=== PATIENT | female | born 1975 | race Caucasian/White ===

== ENCOUNTER 2017-02-09 10:35 | Emergency (ER) | payer MEDICARE, OTHER ==
[2017-02-09 10:36] VITALS: BMI 39.9
[2017-02-09 10:55] VITALS: RESP 18
[2017-02-09 11:48] LABS: URINE BILIRUBIN NEGATIVE (NEGATIVE); URINE BLOOD LARGE (NEGATIVE); URINE GLUCOSE (UA) NEGATIVE (NEGATIVE); URINE KETONE NEGATIVE (NEGATIVE); URINE LEUKOCYTE ESTERASE MODERATE Leu/uL (NEGATIVE); URINE PROTEIN TRACE mg/dL (<30 mg/dL); URINE UROBILINOGEN 0.2 E.U./dL (<1 E.U./dL)
[2017-02-09 11:52] LABS: URINE APPEARANCE TURBID (CLEAR); URINE COLOR YELLOW (YELLOW)
[2017-02-09 11:53] LABS: URINE BACTERIA MANY (NEG); URINE EPITHELIAL CELLS MANY /hpf (0-5); URINE RBC 25 - 30 /hpf (0-2)
--- NOTE | 2017-02-09 12:03 | ED PDOC ---
Arrival/HPI - General Chief Complaint: Abdominal Pain Time Seen by Provider: 02/09/17 11:22 Historian: Patient - History of Present Illness Narrative History of Present Illness (Text): 02/09/17 11:29 A 41 year old female, whose past medical history includes Lupus, Rheumatic arthritis, and hysterectomy, presents to the emergency department complaining of worsening suprapubic pain for the past 3 days. Pain is associated with dysuria. She mentions in the past she had similar pain and was told she had a UTI. Patient denies any fever, nausea, vomiting, diarrhea, chest pain, shortness of breath, dizziness, or any other complaints at this time. Patient's last menstrual cycle was 01/15/17. PMD: Dr. 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 - Renal Hx Renal Disorder: No - Endocrine/Metabolic Hx Endocrine Disorders: Yes Hx Systemic Lupus Erythematosus: Yes - Hematological/Oncological Hx Blood Disorders: Yes Hx Anemia: Yes - Integumentary Hx Dermatological Disorder: No - Musculoskeletal/Rheumatological Hx Musculoskeletal Disorders: Yes (LUMBAR RADICULOPATHY) Hx Back Pain: Yes (BULGING DISC) Hx Falls: Yes Hx Fractures: Yes (RT.ARM 2011) Hx Rheumatoid Arthritis: Yes - Gastrointestinal Hx Gastrointestinal Disorders: Yes Hx Gastritis: Yes - Genitourinary/Gynecological Hx Genitourinary Disorders: Yes Hx Urinary Tract Infection: Yes Other/Comment: last chemo was in March 2016 - Psychiatric Hx Psychophysiologic Disorder: No Hx Substance Use: No - Past Surgical History Past Surgical History: No Previous - Surgical History Hx Tubal Ligation: Yes - Anesthesia Hx Anesthesia: Yes Hx Anesthesia Reactions: No Hx Malignant Hyperthermia: No - Suicidal Assessment Feels Threatened In Home Enviroment: No Family/Social History - Physician Review Nursing Documentation Reviewed: Yes Family/Social History: Unknown Family HX Smoking Status: Never Smoked Hx Alcohol Use: No Hx Substance Use: No Hx Substance Use Treatment: No Allergies/Home Meds Allergies/Adverse Reactions: Allergies aspirin Allergy (Verified 02/09/17 10:52) SWELLING Review of Systems - Physician Review All systems were reviewed & negative as marked: Yes - Review of Systems Constitutional: absent: Fevers Respiratory: absent: SOB Cardiovascular: absent: Chest Pain Gastrointestinal: Abdominal Pain. absent: Diarrhea, Nausea, Vomiting Genitourinary Female: Dysuria Musculoskeletal: absent: Back Pain (has chronic back pain; no changes) Neurological: absent: Dizziness Physical Exam Vital Signs Reviewed: Yes Vital Signs Temp Pulse Resp BP Pulse Ox 02/09/17 11:57 89 18 148/79 100 02/09/17 10:54 98.1 F 98 H 18 151/87 H 100 02/09/17 10:53 98.4 F 100 H 16 151/87 H 100 Temperature: Afebrile Blood Pressure: Hypertensive Pulse: Regular Respiratory Rate: Normal Appearance: Positive for: Well-Appearing, Non-Toxic, Comfortable, Other (obese) Pain Distress: None Mental Status: Positive for: Alert and Oriented X 3 - Systems Exam Head: Present: Atraumatic, Normocephalic Pupils: Present: PERRL Conjunctiva: Present: Normal Mouth: Present: Moist Mucous Membranes Pharnyx: Present: Normal. No: ERYTHEMA, EXUDATE Neck: Present: Normal Range of Motion Respiratory/Chest: Present: Clear to Auscultation, Good Air Exchange. No: Respiratory Distress, Accessory Muscle Use Cardiovascular: Present: Regular Rate and Rhythm, Normal S1, S2. No: Murmurs Abdomen: Present: Normal Bowel Sounds. No: Tenderness, Distention, Peritoneal Signs Back: Present: Normal Inspection Upper Extremity: Present: Normal Inspection. No: Cyanosis, Edema Lower Extremity: Present: Normal Inspection. No: Edema Neurological: Present: GCS=15, CN II-XII Intact, Speech Normal Skin: Present: Warm, Dry, Normal Color. No: Rashes Psychiatric: Present: Alert, Oriented x 3, Normal Insight, Normal Concentration Medical Decision Making ED Course and Treatment: 02/09/17 11:29 Impression: A 41 year old female with suprapubic pain associated with dysuria with normal exam. Differential Diagnosis included but are not limited to: UTI vs CREDIT RISK MANAGER etiology Plan: -- Urinalysis -- Phenazopyridine -- Reassess and disposition Prior Visits: Notes and results from previous visits were reviewed. The patient last presented to the emergency department on 06/21/16 for evaluation of lower abdominal pain. Patient was seen by electrophysiology tech who told her she had a UTI and was placed on Cipro without any relief. She was given a dose of Rocephin and discharged home on Keflex. Progress Notes: Patient with recurrent UTI - culture sent; will d/c on macrobid and pyridium, and she will f/u her PMD. - Lab Interpretations Lab Results: Lab Results 02/09/17 11:43: Urine Color Yellow, Urine Appearance Turbid, Urine pH 6.0, Ur Specific [place] >= 1.030, Urine Protein Trace H, Urine Glucose (UA) Negative, Urine Ketones Negative, Urine Blood Large H, Urine Nitrate Negative, Urine Bilirubin Negative, Urine Urobilinogen 0.2, Ur Leukocyte Esterase Moderate H, Urine RBC 25 - 30, Urine WBC 5 - 10, Ur Epithelial Cells Many, Urine Bacteria Many I have reviewed the lab results: Yes - Medication Orders Current Medication Orders: Discontinued Medications Nitrofurantoin Macrocrystals (Macrobid) 100 mg PO ONCE STA Stop: 02/09/17 11:56 Last Admin: 02/09/17 12:14 Dose: 100 MG Phenazopyridine HCl (Pyridium) 200 mg PO STAT STA Stop: 02/09/17 11:37 Last Admin: 02/09/17 11:45 Dose: 200 MG - Scribe Statement The provider has reviewed the documentation as recorded by the Silvreio Lindquist Provider Scribe Attestation: All medical record entries made by the Silverio were at my direction and personally dictated by me. I have reviewed the chart and agree that the record accurately reflects my personal performance of the history, physical exam, medical decision making, and the department course for this patient. I have also personally directed, reviewed, and agree with the discharge instructions and disposition. Disposition/Present on Arrival - Present on Arrival Any Indicators Present on Arrival: No History of DVT/PE: No History of Uncontrolled Diabetes: No Urinary Catheter: No History of Decub. Ulcer: No History Surgical Site Infection Following: None - Disposition Have Diagnosis and Disposition been Completed?: Yes Diagnosis: Urinary tract infection Disposition: HOME/ ROUTINE Disposition Time: 12:45 Patient Plan: Discharge Condition: GOOD Discharge Instructions (ExitCare): Urinary Tract Infection in Women (ED) Additional Instructions: Drink plenty of fluids and take the antibiotics as prescribed. Given multiple UTI recurrence, recommend outpatient infectious disease consult, to be arranged by your primary care doctor, with whom you are to follow up. Return to the emergency department if any new concerning symptoms. Prescriptions: Nitrofurantoin Macrocrystals [Macrobid] 100 mg PO BID #14 cap Phenazopyridine HCl [Pyridium] 1 tab PO TID PRN #6 tablet PRN Reason: Urinary Discomt
[2017-02-09 13:20] VITALS: BP 132/73; PULSE 74; TEMP 98; O2SAT 99
== END 2017-02-09 13:28 | disposition home or self-care (01) ==
LOC: ED 10:35
DX: N39.0 Urinary tract infection, site not specified (principal); M06.9 Rheumatoid arthritis, unspecified; M32.9 Systemic lupus erythematosus, unspecified

== ENCOUNTER 2018-09-24 10:12 | Emergency (ER) | payer MEDICARE, OTHER ==
[2018-09-24 10:13] VITALS: BMI 39.9
--- NOTE | 2018-09-24 10:31 | ED PDOC ---
Arrival/HPI - General Historian: Patient - History of Present Illness Narrative History of Present Illness (Text): 09/24/18 10:28 42yo female with past medical history of lupus and RA present with complaint of nonproductive cough and chest congestion x 3days. Reports TMax o 104 3days ago. States the last time she took Tylenol was last night. States the congestion on her chest is causing her to be SOB when she cough. states she saw her PMD on Tuesday and was placed on Amoxicillin, Promethazine Diabetes and Prednisone. States she was told to go to the emergency department if she have no improvement. She denies chest pain, diaphoresis, LE edema, calf pain, sick contact, recent travel, nausea, abdominal pain, any other complaint. <LienHappiness A - Last Filed: 09/24/18 12:06> Past Medical History - Provider Review Nursing Documentation Reviewed: Yes - Infectious Disease Hx of Infectious Diseases: None - Tetanus Immunization Tetanus Immunization: Unknown - Cardiac Hx Cardiac Disorders: No Hx Pacemaker: No - Pulmonary Hx Respiratory Disorders: No - Neurological Hx Neurological Disorder: No - HEENT Hx HEENT Disorder: Yes Other/Comment: chronic dry eye disease secondary to RA - Renal Hx Renal Disorder: No - Endocrine/Metabolic Hx Endocrine Disorders: Yes Hx Systemic Lupus Erythematosus: Yes - Hematological/Oncological Hx Blood Disorders: Yes Hx Anemia: Yes - Integumentary Hx Dermatological Disorder: No - Musculoskeletal/Rheumatological Hx Musculoskeletal Disorders: Yes (LUMBAR RADICULOPATHY) Hx Back Pain: Yes (BULGING DISC) Hx Falls: Yes Hx Fractures: Yes (RT.ARM 2011) Hx Rheumatoid Arthritis: Yes - Gastrointestinal Hx Gastrointestinal Disorders: Yes Hx Gastritis: Yes - Genitourinary/Gynecological Hx Genitourinary Disorders: Yes Hx Urinary Tract Infection: Yes Other/Comment: last chemo was in March 2016 - Psychiatric Hx Psychophysiologic Disorder: No Hx Substance Use: No - Past Surgical History Past Surgical History: No Previous - Surgical History Hx Tubal Ligation: Yes - Anesthesia Hx Anesthesia: Yes Hx Anesthesia Reactions: No Hx Malignant Hyperthermia: No - Suicidal Assessment Feels Threatened In Home Enviroment: No <Diru,Happiness A - Last Filed: 09/24/18 12:06> Family/Social History - Physician Review Nursing Documentation Reviewed: Yes Family/Social History: Unknown Family HX Smoking Status: Never Smoked Hx Alcohol Use: No Hx Substance Use: No Hx Substance Use Treatment: No <Kate Emmanuel A - Last Filed: 09/24/18 12:06> Allergies/Home Meds <Kate Emmanuel A - Last Filed: 09/24/18 12:06> <Brenton Ellsworthoper - Last Filed: 09/24/18 12:37> Allergies/Adverse Reactions: Allergies aspirin Allergy (Verified 02/09/17 10:52) SWELLING Review of Systems - Physician Review All systems were reviewed & negative as marked: Yes - Review of Systems Constitutional: Normal Eyes: Normal ENT: Normal Respiratory: Cough. absent: Sputum, Wheezing Cardiovascular: Normal Gastrointestinal: Normal Genitourinary Female: Normal Musculoskeletal: Normal Skin: Normal Neurological: Normal Endocrine: Normal Hemo/Lymphatic: Normal Psychiatric: Normal <Kate Emmanuel A - Last Filed: 09/24/18 12:06> Physical Exam Vital Signs Reviewed: Yes Temperature: Afebrile Blood Pressure: Normal Pulse: Regular Respiratory Rate: Normal Appearance: Positive for: Well-Appearing, Non-Toxic, Comfortable Pain Distress: None Mental Status: Positive for: Alert and Oriented X 3 - Systems Exam Head: Present: Atraumatic, Normocephalic Pupils: Present: PERRL Extroacular Muscles: Present: EOMI Conjunctiva: Present: Normal Mouth: Present: Moist Mucous Membranes Neck: Present: Normal Range of Motion Respiratory/Chest: Present: Clear to Auscultation, Good Air Exchange. No: Respiratory Distress, Accessory Muscle Use, Wheezes, Decreased Breath Sounds, Rales, Retracting, Rhonchi Cardiovascular: Present: Regular Rate and Rhythm, Normal S1, S2. No: Murmurs Abdomen: No: Tenderness, Distention, Peritoneal Signs Back: Present: Normal Inspection Upper Extremity: Present: Normal Inspection. No: Cyanosis, Edema Lower Extremity: Present: Normal Inspection. No: Edema Neurological: Present: GCS=15, CN II-XII Intact, Speech Normal Skin: Present: Warm, Dry, Normal Color. No: Rashes Psychiatric: Present: Alert, Oriented x 3, Normal Insight, Normal Concentration <Kate Emmanuel A - Last Filed: 09/24/18 12:06> Vital Signs Temp Pulse Resp BP Pulse Ox 09/24/18 12:21 98 F 85 20 121/53 L 100 09/24/18 11:13 96 H 09/24/18 10:29 98.1 F 101 H 17 122/78 97 <Domenico Ellsworth - Last Filed: 09/24/18 12:37> Medical Decision Making ED Course and Treatment: 09/24/18 12:02 42yo female in emergency department with complaint of cough x 3days PT was hemodynamically stable in emergency department . Not hypoxic. Albuterol x2 Chest xray She is already on prednisone, Amoxicillin and promethazine. On re evaluation pt was not in any distress. Afebrile. Chest xray - IMPRESSION: Mild linear atelectasis both lung bases. . Result was DW the pt DC home with prometh with codeine and albuterol. Advised to stop promth Diabetes and continue with her other medications. Referred to her PMD. <Kate Emmanuel - Last Filed: 09/24/18 12:06> - Lab Interpretations Lab Results: Lab Results 09/24/18 10:30: Influenza Typ A,B (EIA) Negative for flu a/b - RAD Interpretation Radiology Orders: 09/24/18 10:32 CHEST TWO VIEWS (PA/LAT) [RAD] Stat - Medication Orders Current Medication Orders: Discontinued Medications Albuterol Sulfate (Albuterol 0.083% Inhal Jennifer (2.5 Mg/3 Ml) Ud) 2.5 mg INH STAT STA Stop: 09/24/18 10:34 Last Admin: 09/24/18 10:57 Dose: 2.5 mg Albuterol Sulfate (Albuterol 0.083% Inhal Jennifer (2.5 Mg/3 Ml) Ud) 2.5 mg INH STAT STA Stop: 09/24/18 10:38 Last Admin: 09/24/18 11:14 Dose: 2.5 mg <Domenico Ellsworth - Last Filed: 09/24/18 12:37> - PA / WAREHOUSE HAND / Resident Statement /DO has reviewed & agrees with the documentation as recorded. <Domenico Ellsworth - Last Filed: 09/24/18 12:37> Disposition/Present on Arrival - Present on Arrival Any Indicators Present on Arrival: No History of DVT/PE: No History of Uncontrolled Diabetes: No Urinary Catheter: No History Surgical Site Infection Following: None - Disposition Have Diagnosis and Disposition been Completed?: Yes Disposition Time: 11:50 Patient Plan: Discharge <Kate Emmanuel - Last Filed: 09/24/18 12:06> <Domenico Ellsworth - Last Filed: 09/24/18 12:37> - Disposition Diagnosis: Cough Disposition: HOME/ ROUTINE Condition: STABLE Discharge Instructions (ExitCare): Cough in Adults Additional Instructions: Continue with your medication follow up with your Doctor Return to emergency department for any new or worsening symptoms Prescriptions: Promethazine HCl/Codeine [Prometh-Codein 6.25-10 mg/5 ml] 5 ml PO Q6 #100 syrup RX: Albuterol HFA [Ventolin HFA 90 mcg/actuation (8 g)] 2 puff IH [id number] #1 puff Referrals: Jasmin Gruber MD [Medical Doctor] - Follow up with primary Forms: WORK NOTE
[2018-09-24] MEDS ORDERED: Albuterol 0.083% Inhal Sol (2.5 mg/3 mL) UD INH STA ×2 (10:33→10:37)
--- NOTE | 2018-09-24 12:05 | RAD ---
Date of service: 09/24/2018 HISTORY: cough COMPARISON: Comparison made with prior CT scan abdomen pelvis 06/21/2016 which imaged both lung bases. The TECHNIQUE: Chest PA and lateral FINDINGS: LUNGS: Mild linear atelectasis both lung bases. PLEURA: No significant pleural effusion identified. No pneumothorax apparent. CARDIOVASCULAR: No aortic atherosclerotic calcification present. Normal cardiac size. No pulmonary vascular congestion. OSSEOUS STRUCTURES: Mild multilevel degenerative spondylosis of the thoracic spine. VISUALIZED UPPER ABDOMEN: Normal. OTHER FINDINGS: None. IMPRESSION: Mild linear atelectasis both lung bases.
[2018-09-24 12:23] VITALS: BP 121/53; PULSE 85; RESP 20; TEMP 98; O2SAT 100
== END 2018-09-24 12:21 | disposition home or self-care (01) ==
LOC: ED 10:12
DX: R05 Cough (principal); M06.9 Rheumatoid arthritis, unspecified; M32.9 Systemic lupus erythematosus, unspecified